=== PATIENT | female | born 1975 | race Caucasian/White ===

== ENCOUNTER → 2016-09-20 | Outpatient (CLI) | payer OTHER ==
[~2016-09-20] MED LIST: BUPR100CR PO; JUNE1TAB PO; MACR100C PO; PROC1TAB8 PO; PROT40TA PO; RANI150 PO; SUMA50TA2 PO; [UNRECOGNIZED DRUG - OTHER]
[2016-09-20 08:19] LABS: ALKALINE PHOSPHATASE 68 U/L (45-117); ALT (GPT) 20 U/L (10-53); ANION GAP 8 MEQ/L (5-15); AST (GOT) 25 U/L (15-37); BICARBONATE 28.5 MEQ/L (21.0-32.0); BLOOD UREA NITROGEN 8 MG/DL (7-18); CHLORIDE 104 MEQ/L (98-107); GLOMERULAR FILTRATION RATE 62 ML/MIN (>89); GLUCOSE,FASTING 90 MG/DL (74-99); SODIUM (NA) 140 MEQ/L (136-145); TOTAL BILIRUBIN ADULT 0.4 MG/DL (0.2-1.0)
== END ==
LOC: CLAB 07:33
PROVIDERS: ATTEND Family Medicine
DX: K76.89 Other specified diseases of liver (principal)
CPT/HCPCS: 36415; 80053

== ENCOUNTER → 2017-07-02 | Outpatient (CLI) | payer OTHER ==
[2017-07-02 07:50] LABS: ALBUMIN 3.3 GM/DL (3.4-5.0); AST (GOT) 11 U/L (15-37); BICARBONATE 25.8 MEQ/L (21.0-32.0); BLOOD UREA NITROGEN 13 MG/DL (7-18); CALCIUM 8.7 MG/DL (8.5-10.1); CHLORIDE 107 MEQ/L (98-107); CREATININE 0.75 MG/DL (0.50-1.00); GLOMERULAR FILTRATION RATE 84 ML/MIN (>89); GLUCOSE,RANDOM 92 MG/DL (74-106); SODIUM (NA) 139 MEQ/L (136-145)
[2017-07-02 07:51] LABS: ALT (GPT) 18 U/L (10-53)
[2017-07-02 07:53] LABS: ALKALINE PHOSPHATASE 82 U/L (45-117); TOTAL BILIRUBIN ADULT 0.2 MG/DL (0.2-1.0); TOTAL PROTEIN 6.7 GM/DL (6.4-8.2)
== END ==
LOC: CLAB 06:46
PROVIDERS: ATTEND Internal Medicine Gastroenterology
DX: K76.89 Other specified diseases of liver (principal)
CPT/HCPCS: 36415; 80053; 82105

== ENCOUNTER → 2017-09-11 | Outpatient (CLI) | payer OTHER ==
[~2017-09-11] VITALS: Ht 154.9 cm; Wt 62.6 kg
[~2017-09-11] MED LIST changes: +ALPR.5 PO; +AMPH1TAB29 PO; +BETH5TAB2 PO; +CHLORHEXIDINE GLUCONATE 2 % 1 PACK (2 CLOTHS) TOPICAL PRN; +DO NOT ADM ANY ANTICOAGULANT DRUGS PRN; +FLUTI44I INH; +INSULIN HUMAN REGULAR 1,000 UNITS/10 ML VIAL SQ PRN; +LACTATED RINGER'S 1000 ML IV PRN; -MACR100C PO; +METOPROLOL TARTRATE 25 MG TAB PO PRN; +PANT20 PO; +POVIDONE IODINE 5% (ANTISEPSIS KIT) 4 APPLICATIONS EACH NARE PRN; +PROC10TA PO; -PROC1TAB8 PO; +PROPOFOL 200 MG/20 ML AMP IV ONE; -PROT40TA PO; -RANI150 PO; +SODIUM CHLORID 0.9% 500 ML IV PRN; +SUMA100T2 PO; -SUMA50TA2 PO; +WOMETAB PO; -[UNRECOGNIZED DRUG - OTHER]
[2017-09-11 12:45] VITALS: BP 136/74; PULSE 69; RESP 16; TEMP 97.3; O2SAT 99
--- NOTE | 2017-09-23 08:44 | MR ---
cc: Pérez Lance MD 09/11/2017 PROCEDURE PERFORMED: Upper endoscopy. INDICATIONS FOR THE PROCEDURE: Patient with gastroparesis, upper GI dyspeptic symptoms, history of nausea. In addition, recent imaging studies reveal a thickening of the gastric wall, rule out any gastric abnormalities as suggested by imaging studies. Photographs and biopsies were taken. PREMEDICATIONS: Administered by anesthesiology. MONITORING: Monitoring was accomplished with pulse oximeter, EKG and blood pressure monitor. PROCEDURE NOTE: After informed consent was obtained and the procedure, risks and benefits were explained including the risks of bleeding, sepsis, perforation and the risks of anesthesia, the patient was placed in the left lateral position. The video endoscope was inserted into the esophagus under direct visualization. The esophagus was carefully inspected and was found to be normal throughout with a normal Z-line. The stomach was entered. The gastric mucosa was carefully visualized. The patient did have large gastric folds throughout the proximal and mid stomach. These were of normal variance. I did notice one gastric polyp 5-6 mm. This was biopsied off and removed. In the distal antrum, there was mild gastritis noted. This was also biopsied several times. In the retroflex view, the cardia and fundus were normal. The scope was passed through the pyloric ring into the first, second and third portion of the duodenum. The duodenal mucosa was unremarkable. The scope was then gradually withdrawn. The patient tolerated the procedure well. No immediate complications were noted. She was sent to the recovery room in stable condition. IMPRESSION: This examination was essentially benign. The patient had normal variance of large gastric folds. Antral gastritis was noted and biopsied. One gastric polyp was biopsied. PLAN: We will continue promotility therapy, acid-suppressive therapy. Linzess will be added for lower GI motility as well. We will followup clinically as an outpatient. Followup biopsies taken today. MD NITHYA Guzman/HERRERA , 11:31 AM , 11:50 AM
== END ==
LOC: HSDC 08:25
PROVIDERS: ATTEND Internal Medicine Gastroenterology
DX: K29.70 Gastritis, unspecified, without bleeding (principal); K31.7 Polyp of stomach and duodenum; R11.0 Nausea; K58.9 Irritable bowel syndrome, unspecified; F41.9 Anxiety disorder, unspecified; Z87.898 Personal history of other specified conditions
CPT/HCPCS: 00731; 43239; 88305; 88312; J7120

== ENCOUNTER → 2017-12-24 | Outpatient (CLI) | payer OTHER ==
[~2017-12-24] MED LIST changes: -CHLORHEXIDINE GLUCONATE 2 % 1 PACK (2 CLOTHS) TOPICAL PRN; -DO NOT ADM ANY ANTICOAGULANT DRUGS PRN; -INSULIN HUMAN REGULAR 1,000 UNITS/10 ML VIAL SQ PRN; -LACTATED RINGER'S 1000 ML IV PRN; -METOPROLOL TARTRATE 25 MG TAB PO PRN; -POVIDONE IODINE 5% (ANTISEPSIS KIT) 4 APPLICATIONS EACH NARE PRN; -PROPOFOL 200 MG/20 ML AMP IV ONE; -SODIUM CHLORID 0.9% 500 ML IV PRN
[2017-12-24 07:44] LABS: AUTOMATED NEUTROPHIL # 5.7 TH/MM3 (1.8-7.7); BASOPHIL # 0.1 TH/MM3 (0-0.2); BASOPHIL % 0.7 % (0.0-2.0); EOSINOPHIL # 0.1 TH/MM3 (0-0.4); EOSINOPHIL % 1.2 % (0.0-4.0); HEMATOCRIT 37.2 % (35.0-46.0); HEMOGLOBIN 12.8 GM/DL (11.6-15.3); LYMPH % 24.2 % (9.0-44.0); MEAN CELL VOLUME 88.3 FL (80.0-100.0); MEAN CORPUSCULAR HEMOGLOBIN 30.4 PG (27.0-34.0); MEAN CORPUSCULAR HGB CONC 34.4 % (32.0-36.0); MEAN PLATELET VOLUME 7.5 FL (7.0-11.0); MONOCYTE # 0.4 TH/MM3 (0-0.9); NEUT % 68.9 % (16.0-70.0); PLATELET COUNT 373 TH/MM3 (150-450); RED BLOOD COUNT 4.22 MIL/MM3 (4.00-5.30); RED CELL DISTRIBUTION WIDTH 12.9 % (11.6-17.2); WHITE BLOOD COUNT 8.3 TH/MM3 (4.0-11.0)
[2017-12-24 08:06] LABS: ALBUMIN 3.7 GM/DL (3.4-5.0); ALT (GPT) 19 U/L (10-53); AST (GOT) 9 U/L (15-37); BLOOD UREA NITROGEN 6 MG/DL (7-18); CALCIUM 8.5 MG/DL (8.5-10.1); CHLORIDE 109 MEQ/L (98-107); CREATININE 0.86 MG/DL (0.50-1.00); GLOMERULAR FILTRATION RATE 72 ML/MIN (>89); GLUCOSE,FASTING 95 MG/DL (74-99); SODIUM (NA) 142 MEQ/L (136-145)
[2017-12-24 08:09] LABS: ALKALINE PHOSPHATASE 69 U/L (45-117); TOTAL BILIRUBIN ADULT 0.3 MG/DL (0.2-1.0); TOTAL PROTEIN 6.9 GM/DL (6.4-8.2)
== END ==
LOC: CLAB 07:15
PROVIDERS: ATTEND Internal Medicine Gastroenterology
DX: K76.89 Other specified diseases of liver (principal)
CPT/HCPCS: 36415; 80053; 82140; 85025